=== PATIENT | female | born 1975 | race Caucasian/White ===

== ENCOUNTER 2022-02-06 12:55 | Emergency (ER) | payer MEDICAID ==
[~2022-02-06] VITALS: Ht 160 cm; Wt 64.4 kg
--- NOTE | 2022-02-06 13:18 | NUR ---
Placed in room 3 . Placed on teletypesetter monitor, blood pressure machine and pulse oximeter. To gown for exam. Side rails up. Report given to DEVI.
[2022-02-06 13:24] VITALS: BP_SYST 139
[2022-02-06] MEDS ORDERED: LORazepam 1 MG TABLET PO ONE (13:45)
--- NOTE | 2022-02-06 14:01 | NUR ---
Patient presents to ED AOx4, GCS 15 with report of SI. Pt denies HI, Visual and Auditory hallucinations at this time. SI precautions intiated. Patient placed in room 5 within close proximity to nurses' station for closer observation and monitoring. All clothing removed, placed in hospital gown. Room secured for ligature risk. Metal detector wand used to further screen patient of any potential hazardous belongings. All belongings inventoried, placed in bags and removed from room. Cabinets locked. BP and pulse oximeter cords, and athletic monitor leads removed. MARQUSI. ED MD at bedside.
[2022-02-06 14:07] LABS: BASOPHILS # (AUTO) 0.2 K/uL (0.0-0.2); BASOPHILS % (AUTO) 2.5 % (0.0-2.0); EOSINOPHILS # (AUTO) 0.1 K/uL (0.0-0.4); EOSINOPHILS % (AUTO) 1.4 % (0.0-4.0); HEMATOCRIT 36.6 % (36-48); HEMOGLOBIN 12.3 g/dL (12.0-16.0); LYMPHOCYTES # (AUTO) 1.7 K/uL (1.0-5.5); LYMPHOCYTES % (AUTO) 21.6 % (20.5-51.5); MEAN CORPUSCULAR HEMOGLOBIN 27 pg (27-31); MEAN CORPUSCULAR HGB CONC 34 % (32-36); MEAN CORPUSCULAR VOLUME 80 fL (79.0-98.0); MONOCYTES # (AUTO) 0.8 K/uL (0.0-1.0); MONOCYTES % (AUTO) 10.3 % (1.7-9.3); NEUTROPHILS % (AUTO) 64.2 % (40.0-70.0); PLATELET COUNT (AUTO) 368 K/uL (130-430); RED BLOOD CELL COUNT(AUTO) 4.55 MIL/uL (4.2-6.2); RED CELL DISTRIBUTION WIDTH 17.8 % (9.0-15.0); WHITE BLOOD COUNT (AUTO) 7.7 K/uL (4.8-10.8)
[2022-02-06 14:20] LABS: BARBITURATE, URINE NEGATIVE (NEG <=200); BENZODIAZEPINE, URINE NEGATIVE (NEG <=150); CANNABINOID, URINE NEGATIVE (NEG <=50); COCAINE, URINE NEGATIVE (NEG <=150); METHAMPHETAMINES SCREEN,URINE POSITIVE (NEG <=500); OPIATE, URINE NEGATIVE (NEG <=100); PHENCYCLIDINE SCREEN,URINE NEGATIVE (NEG <=25); UR TRICYCLIC ANTIDEPRESSANTS NEGATIVE (NEG <=300); URINE AMPHETAMINE POSITIVE (NEG <=500); URINE METHADONE NEGATIVE (NEG <=200); URINE OXYCODONE SCREEN NEGATIVE (NEG <=100); URINE PROPOXYPHENE SCREEN NEGATIVE (NEG <=300)
[2022-02-06 14:28] LABS: ANION GAP 3 (5-15); CHLORIDE 99 mmol/L (98-107); CREATININE 0.84 mg/dL (0.55-1.30); GLUCOSE 125 mg/dL (70-99); POTASSIUM 3.8 mmol/L (3.5-5.1); SODIUM SERUM 133 mmol/L (136-145); UREA NITROGEN, BLOOD 7 mg/dL (8-21)
[2022-02-06 14:31] LABS: GFR AFRICAN AMERICAN 94 mL/min (>90)
[2022-02-06 14:34] LABS: ALANINE AMINOTRANSFERASE 13 U/L (12-78); ALBUMIN 3.6 g/dL (3.4-4.8); AMYLASE 40 U/L (0-100); ASPARTATE AMINOTRANSFERASE 16 U/L (10-37); LIPASE 37 U/L (73-393); TOTAL BILIRUBIN 0.5 mg/dL (0.0-1.0)
[2022-02-06 14:40] LABS: ACETAMINOPHEN < 1 ug/mL (1-30); ALCOHOL, BLOOD < 3 mg/dL (<10)
[2022-02-06 15:15] LABS: ACETONE, SERUM NEGATIVE (NEGATIVE)
--- NOTE | 2022-02-06 15:20 | NUR ---
Psych evaluation completed by via videochat. Pt cleared. not on 5150. pt verbalized plan to return back to rehab facility and receive care. Pt states that she is safe at facility. ED physician aware and medically cleared pt. Will D/C pt at this time.
[2022-02-06 15:30] VITALS: BP_SYST 134
--- NOTE | 2022-02-06 15:31 | NUR ---
Patient given written and verbal discharge instructions and verbalizes understanding. ER MD discussed with patient the results and treatment provided. Patient in stable condition. ID arm band removed. Patient educated on pain management and to follow up with PMD. Pain Scale 0/10 . Opportunity for questions provided and answered. Medication side effect fact sheet provided. Pt ambulated out of ED on own strength Aox4 GCS 15 cleared by psychiatrist in ED and medically cleared by ED physician. Not on a hold at this time.
== END 2022-02-06 15:31 | disposition home or self-care (01) ==
LOC: SED 12:55
DX: R45.851 Suicidal ideations (principal); F10.20 Alcohol dependence, uncomplicated; Y90.9 Presence of alcohol in blood, level not specified; F19.10 Other psychoactive substance abuse, uncomplicated; F12.90 Cannabis use, unspecified, uncomplicated
CPT/HCPCS: 36415; 74176; 76376; 80053; 80307; 82009; 82150; 82550; 83605; 83690; 85025; 99284; G0480; G0481; G0482